=== PATIENT | male | born 1955 | race Caucasian/White ===

== ENCOUNTER 2018-06-28 18:38 | Emergency (ER) | payer OTHER ==
[2018-06-28 19:43] LABS: Absolute Monocytes 0.7 K/uL (0.1-1.3); Absolute Neutrophil 4.8 K/uL (1.8-8.0); Basophils % 0.8 % (0-1.3); Eosinophils % 4.3 % (0-4.4); Hematocrit 45.7 % (39.6-49.0); Lymphocytes % 33.1 % (15.3-44.8); MPV 8.2 fL (7.6-11.3); Monocytes % 8.3 % (3.3-12.3)
[2018-06-28 19:56] LABS: Potassium 3.6 mmol/L (3.5-5.1)
--- NOTE | 2018-06-28 20:42 | ER ---
Nurse's Notes [facility] Name: Hermes Dos Santos Age: 62 yrs Sex: Male : 1955 Arrival Date: 06/28/2018 Time: 18:42 Bed 25 Private MD: Diagnosis: Transient swelling / redness left cheek and both forearms Presentation: 06/28 18:54 Presenting complaint: Patient states: Pt reports area of redness and mild swelling that ss began 2 weeks ago on L side of face that went away after two days, but is now on bilateral forearms and hands. Denies fever, itching and/or pain. Transition of care: patient was not received from another setting of care. Onset of symptoms was June 14, 2018. Risk Assessment: Do you want to hurt yourself or someone else? Patient reports no desire to harm self or others. Initial Sepsis Screen: Does the patient meet any 2 criteria? No. Patient's initial sepsis screen is negative. Does the patient have a suspected source of infection? No. Patient's initial sepsis screen is negative. Care prior to arrival: None. 18:54 Method Of Arrival: Ambulatory ss 18:54 Acuity: VAMSI 3 ss Historical: - Allergies: 18:57 No Known Allergies; ss - Home Meds: 18:57 None [Active]; ss - PMHx: 18:57 None; ss - PSHx: 18:57 L elbow; L index finger; ss - Immunization history:: Adult Immunizations up to date. - Social history:: Smoking status: Patient uses tobacco products, smokes one pack cigarettes per day. - Ebola Screening: : Patient denies exposure to infectious person Patient denies travel to an Ebola-affected area in the 21 days before illness onset. Screenin:25 Abuse screen: Denies threats or abuse. Denies injuries from another. Nutritional mg2 screening: No deficits noted. Tuberculosis screening: No symptoms or risk factors identified. Fall Risk None identified. Assessment: 20:26 General: Appears in no apparent distress. comfortable, Behavior is calm, cooperative. mg2 Pain: Denies pain. Neuro: Level of Consciousness is awake, alert, obeys commands, Oriented to person, place, time, situation. Cardiovascular: Capillary refill < 3 seconds Patient's skin is warm and dry. Respiratory: Airway is patent Respiratory effort is even, unlabored, Respiratory pattern is regular, symmetrical. GI: No signs and/or symptoms were reported involving the gastrointestinal system. : No signs and/or symptoms were reported regarding the genitourinary system. EENT: No signs and/or symptoms were reported regarding the EENT system. Derm: Skin is intact, is healthy with good turgor, Skin is pink, warm \T\ dry. normal. Musculoskeletal: Circulation, motion, and sensation intact. Capillary refill < 3 seconds, Swelling present in left arm. Vital Signs: 18:57 BP 141 / 89; Pulse 70; Resp 16; Temp 98.4(O); Pulse Ox 98% on R/A; Weight 79.38 kg; ss Height 5 ft. 10 in. (177.80 cm); Pain 0/10; 20:50 BP 135 / 78; Pulse 70; Resp 18; Temp 98; Pulse Ox 100% on R/A; mg2 18:57 Body Mass Index 25.11 (79.38 kg, 177.80 cm) ED Course: 18:42 Patient arrived in ED. mr 18:57 Triage completed. ss 18:57 Arm band placed on right wrist. 19:08 Randy Peterson MD is Attending Physician. pkrahul 19:12 Wally Giordano RN is Primary Nurse. mg2 20:26 No provider procedures requiring assistance completed. Patient did not have IV access mg2 during this emergency room visit. 20:27 Patient has correct armband on for positive identification. Door closed. mg2 Administered Medications: No medications were administered Outcome: 20:42 Discharge ordered by . pkrahul 20:56 Discharged to home ambulatory. mg2 20:56 Condition: stable 20:56 Discharge instructions given to patient, Instructed on discharge instructions, follow up and referral plans. medication usage, Demonstrated understanding of instructions, follow-up care, medications, Prescriptions given X 1. 20:57 Patient left the ED. mg2 Signatures: Randy Peterson MD MD pkl Rivera, Mary Arianne Ramos, ALLISON RN Wally Giordano RN RN mg2
--- NOTE | 2018-06-28 20:43 | EDPHYS ---
Physician Documentation [facility] Name: Hermes Dos Santos Age: 62 yrs Sex: Male : 1955 Arrival Date: 06/28/2018 Time: 18:42 Bed 25 Private MD: ED Physician Randy Peterson HPI: 06/28 19:25 This 62 yrs old Male presents to ER via Ambulatory with complaints of Arms pkl swelling. 19:25 The patient presents with redness of skin, swelling. Onset: The symptoms/episode pkl began/occurred 2 week(s) ago, and improved. Associated signs and symptoms: The patient has no apparent associated signs or symptoms. Possible causes: The patient has no known obvious cause for the symptoms. Patient noted mild swelling and redness left cheek that resolved after 2 days. Few days ago, similar swelling and redness appeared in both forearms that resolved after 2 to 3 days. Denies any fever, pain or itching.. Historical: - Allergies: 18:57 No Known Allergies; ss - Home Meds: 18:57 None [Active]; ss - PMHx: 18:57 None; ss - PSHx: 18:57 L elbow; L index finger; ss - Immunization history:: Adult Immunizations up to date. - Social history:: Smoking status: Patient uses tobacco products, smokes one pack cigarettes per day. - Ebola Screening: : Patient denies exposure to infectious person Patient denies travel to an Ebola-affected area in the 21 days before illness onset. ROS: 19:25 Eyes: Negative for injury, pain, redness, and discharge, ENT: Negative for injury, pkl pain, and discharge, Neck: Negative for injury, pain, and swelling, Cardiovascular: Negative for chest pain, palpitations, and edema, Respiratory: Negative for shortness of breath, cough, wheezing, and pleuritic chest pain, Abdomen/GI: Negative for abdominal pain, nausea, vomiting, diarrhea, and constipation, Back: Negative for injury and pain, : Negative for injury, bleeding, discharge, and swelling, MS/Extremity: Negative for injury and deformity. 19:25 Skin: Positive for erythema, swelling, of the left cheek and botb forearms. 19:25 Neuro: Negative for altered mental status. Exam: 19:25 Head/Face: Normocephalic, atraumatic. Eyes: Pupils equal round and reactive to light, pkl extra-ocular motions intact. Lids and lashes normal. Conjunctiva and sclera are non-icteric and not injected. Cornea within normal limits. Periorbital areas with no swelling, redness, or edema. ENT: Nares patent. No nasal discharge, no septal abnormalities noted. Tympanic membranes are normal and external auditory canals are clear. Oropharynx with no redness, swelling, or masses, exudates, or evidence of obstruction, uvula midline. Mucous membranes moist. Neck: Trachea midline, no thyromegaly or masses palpated, and no cervical lymphadenopathy. Supple, full range of motion without nuchal rigidity, or vertebral point tenderness. No Meningismus. Chest/axilla: Normal chest wall appearance and motion. Nontender with no deformity. No lesions are appreciated. Cardiovascular: Regular rate and rhythm with a normal S1 and S2. No gallops, murmurs, or rubs. Normal PMI, no JVD. No pulse deficits. Respiratory: Lungs have equal breath sounds bilaterally, clear to auscultation and percussion. No rales, rhonchi or wheezes noted. No increased work of breathing, no retractions or nasal flaring. Abdomen/GI: Soft, non-tender, with normal bowel sounds. No distension or tympany. No guarding or rebound. No evidence of tenderness throughout. Back: No spinal tenderness. No costovertebral tenderness. Full range of motion. Skin: Warm, dry with normal turgor. Normal color with no rashes, no lesions, and no evidence of cellulitis. MS/ Extremity: Pulses equal, no cyanosis. Neurovascular intact. Full, normal range of motion. Neuro: Awake and alert, GCS 15, oriented to person, place, time, and situation. Cranial nerves II-XII grossly intact. Motor strength 5/5 in all extremities. Sensory grossly intact. Cerebellar exam normal. Normal gait. Vital Signs: 18:57 BP 141 / 89; Pulse 70; Resp 16; Temp 98.4(O); Pulse Ox 98% on R/A; Weight 79.38 kg; ss Height 5 ft. 10 in. (177.80 cm); Pain 0/10; 20:50 BP 135 / 78; Pulse 70; Resp 18; Temp 98; Pulse Ox 100% on R/A; mg2 18:57 Body Mass Index 25.11 (79.38 kg, 177.80 cm) MDM: 19:08 Patient medically screened. pkl 20:40 Data reviewed: vital signs, nurses notes, lab test result(s). pkl 06/28 19:25 Order name: CBC with Diff; Complete Time: 20:40 pkl 06/28 19:25 Order name: Chem 7; Complete Time: 20:40 pkl 06/28 19:25 Order name: Sed Rate; Complete Time: 20:40 pkl Administered Medications: No medications were administered Disposition: 06/28/18 20:42 Discharged to Home. Impression: Transient swelling / redness left cheek and both forearms. - Condition is Stable. - Medication Reconciliation Form, Thank You Letter, Antibiotic Education, Prescription Opioid Use form. - Follow up: Private Physician; When: 2 - 3 days; Reason: Re-evaluation by your physician. - Problem is new. - Symptoms have improved. Signatures: Dispatcher [employer] EDMS Randy Peterson MD MD pkl Arianne Ramos RN RN Wally Giordano RN RN mg2 Corrections: (The following items were deleted from the chart) 20:57 20:42 06/28/2018 20:42 Discharged to Home. Impression: Transient swelling / redness mg2 left cheek and both forearms. Condition is Stable. Forms are Medication Reconciliation Form, Thank You Letter, Antibiotic Education, Prescription Opioid Use. Follow up: Private Physician; When: 2 - 3 days; Reason: Re-evaluation by your physician. Problem is new. Symptoms have improved. pkl
== END 2018-06-28 20:57 | disposition home or self-care (01) ==
LOC: ER 18:38
DX: R22.33 Localized swelling, mass and lump, upper limb, bilateral (principal); R22.0 Localized swelling, mass and lump, head; F17.210 Nicotine dependence, cigarettes, uncomplicated
CPT/HCPCS: 36415; 80048; 85025; 85652; 99282

== ENCOUNTER → 2023-04-17 | Emergency (ER) | payer OTHER ==
[2023-04-17 11:06] LABS: Absolute Basophils 0.1 K/uL (0-0.5); Absolute Eosinophils 0.3 K/uL (0-0.5); Absolute Lymphocytes (CBC) 2.1 K/uL (0.7-4.9); Basophils % 0.8 % (0-1.3); Eosinophils % 3.9 % (0-4.4); Hematocrit 47.1 % (39.6-49.0); Hemoglobin 16.5 g/dL (13.6-17.9); Lymphocytes % 28.8 % (15.3-44.8); MCV 94.6 fL (80-100); MPV 7.4 fL (7.6-11.3); Platelets 264 thou/uL (152-406); RBC Red Blood Cell Count 4.98 M/uL (4.33-5.43)
[2023-04-17 11:17] LABS: Protime INR 1.09
[2023-04-17 11:28] LABS: Albumin 3.8 g/dL (3.4-5.0); Anion Gap 10.8 mEq/L (5.0-15.0); Bilirubin Direct 0.2 mg/dL (0-0.2); Bilirubin Indirect, Calculated 0.2 mg/dL (0.2-0.8); Bilirubin Total 0.4 mg/dL (0.2-1.0); Globulin 3.8 g/dL (2.3-3.5); Magnesium 2.4 mg/dL (1.6-2.4); Potassium 3.8 mEq/L (3.5-5.1); Protein, Total 7.6 g/dL (6.4-8.2); Troponin High Sensitivity 7.8 pg/mL (<58.9)
--- NOTE | 2023-04-17 11:29 | RAD REPORT ---
EXAM DESCRIPTION: CT - Ct Stroke Brain Wo Cont - 04/17/2023 11:07 am CLINICAL HISTORY: Blurred vision COMPARISON: none TECHNIQUE: Computed axial tomography of the head was obtained. All CT scans are performed using dose optimization technique as appropriate and may include automated exposure control or mA/KV adjustment according to patient size. FINDINGS: A serpiginous 4 centimeter area of increased density left occipital lobe. The ventricles are normal in caliber. No extra-axial fluid collection is noted. No shift of midline structures Fluid within the sinuses/ mastoids is not seen. IMPRESSION: A 4 centimeter area of increased density left occipital lobe probably a hemorrhagic infa rction. Another consideration is that this represents an arteriovenous malformation which has bled. M RI recommended for further evaluation Examination discussed with Dr. Hair in the Emergency Room at 11:15 a.m. April 17, 2023
--- NOTE | 2023-04-17 11:48 | RAD REPORT ---
EXAM DESCRIPTION: Sundar Single View04/17/2023 11:39 am CLINICAL HISTORY: TIA COMPARISON: 2009 FINDINGS: Chronic opacities right upper lobe Lungs appear clear of acute infiltrate. The heart is normal size IMPRESSION: No acute abnormalities displayed
--- NOTE | 2023-04-17 11:50 | ER ---
Nurse's Notes [facility] Name: Hermes Dos Santos Age: 67 yrs Sex: Male : 1955 Arrival Date: 04/17/2023 Time: 10:14 Bed 2 Private MD: Diagnosis: Hemorrhagic CVA Presentation: 04/16 10:18 Chief complaint: Patient states: got to work at 5 am yesterday and I felt fine iw .somewhere between 0830 and 0900 I started seeing double and I was having trouble using my computer and I could not get words out , was having some confusion, sat in office for 30 minutes and then drove home. I had a headache yesterday. This morning I have a "feeling" around my left eye , and I have not had any more episodes of confusion or double vision or trouble speaking. Coronavirus screen: At this time, the client does not indicate any symptoms associated with coronavirus-19. Ebola Screen: Patient negative for fever greater than or equal to 101.5 degrees Fahrenheit, and additional compatible Ebola Virus Disease symptoms Patient denies exposure to infectious person. Patient denies travel to an Ebola-affected area in the 21 days before illness onset. No symptoms or risks identified at this time. Initial Sepsis Screen: Does the patient meet any 2 criteria? No. Patient's initial sepsis screen is negative. Does the patient have a suspected source of infection? No. Patient's initial sepsis screen is negative. Risk Assessment: Do you want to hurt yourself or someone else? Patient reports no desire to harm self or others. Onset of symptoms was April 16, 2023. 10:18 Method Of Arrival: Ambulatory iw 10:18 Acuity: VAMSI 2 iw 11:00 No acute neurological deficit is noted. Pre-hospital glucose is not applicable to this db patient. Triage Assessment: 11:00 The onset of the patients symptoms was April 16, 2023 at 08:30. db 13:49 General: Appears in no apparent distress. comfortable, Behavior is calm, cooperative. db Neuro: Level of Consciousness is awake, alert, obeys commands, Oriented to person, place, time, situation, Reports. Respiratory: Airway is patent Respiratory effort is even, unlabored, Respiratory pattern is regular, symmetrical. Stroke Activation: Symptom onset > 6 hours Physician: Stroke Attending; Name: ; Notified At: ; Arrived At: Physician: Chief Stroke Resident; Name: ; Notified At: ; Arrived At: Physician: Stroke Resident; Name: ; Notified At: ; Arrived At: Physician: ED Attending; Name: ; Notified At: ; Arrived At: Physician: ED Resident; Name: ; Notified At: ; Arrived At: Historical: - Allergies: 10:22 No Known Allergies; iw - Home Meds: 10:22 None [Active]; iw - PMHx: 10:22 None; iw - PSHx: 10:22 knee; elbow; iw - Immunization history:: Adult Immunizations not up to date. - Social history:: Smoking status: Patient reports the use of cigarette tobacco products, smokes one pack cigarettes per day. Patient uses alcohol, on a daily basis. claims drinking about a 6 pack/day. Screenin:08 [facility] ED Fall Risk Assessment (Adult) History of falling in the last 3 months, db including since admission No falls in past 3 months (0 pts) Confusion or Disorientation No (0 pts) Intoxicated or Sedated No (0 pts) Impaired Gait No (0 pts) Mobility Assist Device Used No (0 pt) Altered Elimination No (0 pt) Score/Fall Risk Level 0 - 2 = Low Risk Oriented to surroundings, Maintained a safe environment. Abuse screen: Denies threats or abuse. Denies injuries from another. Nutritional screening: No deficits noted. Tuberculosis screening: No symptoms or risk factors identified. Kalina Swallow Protocol Brief Cognitive Screen What is your name? Normal, Where are you right now? Normal, What year is it? Normal. Oral Mechanism Examination Facial Symmetry: Normal, Motion: Normal, Lip Closure: Normal, Oral Mechanism Result: Normal. 3 oz Water Swallow Challenge: Pt able to drink all water without stopping, coughing, choking or throat clearing: Yes Result: PASS. Assessment: 11:02 Reassessment: PATIENT TO CT. General: Appears in no apparent distress. comfortable, db Behavior is calm, cooperative. Neuro: Level of Consciousness is awake, alert, obeys commands, Oriented to person, place, time, situation. 12:00 Reassessment: Patient appears in no apparent distress at this time. Patient and/or db family updated on plan of care and expected duration. Pain level reassessed. Patient is alert, oriented x 3, equal unlabored respirations, skin warm/dry/pink. FAMILY IS AT BEDSIDE. Reassessment: Patient appears in no apparent distress at this time. Patient and/or family updated on plan of care and expected duration. Pain level reassessed. Patient is alert, oriented x 3, equal unlabored respirations, skin warm/dry/pink. GI: No deficits noted. No signs and/or symptoms were reported involving the gastrointestinal system. : No deficits noted. No signs and/or symptoms were reported regarding the genitourinary system. EENT: No deficits noted. No signs and/or symptoms were reported regarding the EENT system. Derm: No deficits noted. No signs and/or symptoms reported regarding the dermatologic system. Musculoskeletal: No deficits noted. No signs and/or symptoms reported regarding the musculoskeletal system. 12:08 Reassessment: CALLED TO GIVE REPORT TO [facility]. db 12:09 Reassessment: Patient appears in no apparent distress at this time. Patient and/or db family updated on plan of care and expected duration. Pain level reassessed. Patient is alert, oriented x 3, equal unlabored respirations, skin warm/dry/pink. Pain: Denies pain. Neuro: Level of Consciousness is awake, alert, obeys commands, Oriented to person, place, time, situation, Food And Beverage Assistant Manager are equal bilaterally Moves all extremities. Speech is normal, Facial symmetry appears normal, Pupils are PERRLA, Intact. 12:11 Cardiovascular: No deficits noted. Respiratory: Airway is patent Respiratory effort is db even, unlabored, Respiratory pattern is regular, symmetrical. 12:16 Reassessment: [facility] DID NOT TAKE REPORT. STATES IT IS NOT ON THE BED db ASSIGNMENT AND STATES WILL CALL ME BACK. 12:45 Reassessment: CALLED [facility] TO GIVE PATIENT REPORT. db 12:58 Reassessment: REPORT GIVEN TO ALLISON VÁZQUEZ AT [facility]. db 13:44 Reassessment: EMS HERE FOR PATIENT TRANSPORT TO [facility]. db 13:44 VAN Scoring: Arm Drift: Patients demonstrates NO arm weakness. Patient is VAN Negative. db Visual Disturbance: No visual disturbance noted. Aphasia: No aphasia noted. Neglect: No neglect noted. Kalina Swallow Protocol Brief Cognitive Screen What is your name? Normal, Where are you right now? Normal, What year is it? Normal. Oral Mechanism Examination Facial Symmetry: Normal, Motion: Normal, Lip Closure: Normal, Oral Mechanism Result: Normal. 3 oz Water Swallow Challenge: Pt able to drink all water without stopping, coughing, choking or throat clearing: Yes Result: PASS. TNKase (Tenecteplase) Screening: Indications: Treatment will start within 4.5 hours onset of symptoms: No. TNKase (Tenecteplase) Screening: Contraindications: Intracranial hemorrhage and its risk factor and suspicion of subarachnoid bleed: Yes. Vital Signs: 10:18 BP 150 / 108; Pulse 79; Resp 16; Temp 97.9; Pulse Ox 98% on R/A; Weight 79.38 kg; iw Height 5 ft. 10 in. ; 11:20 BP 159 / 95; Pulse 72; Resp 18; Pulse Ox 99% on R/A; db 12:00 BP 129 / 82; Pulse 69; Resp 18; Pulse Ox 99% on R/A; db 12:30 BP 130 / 85; Pulse 69; Resp 20; Pulse Ox 96% on R/A; db 13:30 BP 144 / 83; Pulse 79; Resp 18; Temp 98; Pulse Ox 96% ; db 10:18 Body Mass Index 25.11 (79.38 kg, 177.8 cm) iw Vitals: 11:00 Cardiac Rhythm Assessment Regular Sinus rhythm. db New Coma Score: 12:09 Eye Response: spontaneous(4). Motor Response: obeys commands(6). Verbal Response: db oriented(5). Total: 15. NIH Stroke Scale Scores: 11:00 NIHSS Score: 0 db 13:44 NIHSS Score: 0 db ED Course: 10:17 Patient arrived in ED. iw 10:18 Franklin Hair MD is Attending Physician. rt 10:22 Triage completed. iw 10:23 Arm band placed on. iw 10:25 Andra Alfaro, RN is Primary Nurse. db 10:51 Initial lab(s) drawn, by me, sent to lab. Inserted saline lock: 22 gauge in right db antecubital area, using aseptic technique. Blood collected. 10:53 EKG done, by ED staff, reviewed by Franklin Hair MD. db 11:45 initiated transfer to [facility]. bd 12:00 pt accepted in transfer to [facility] [address] tariq admin approval bd given by Flakita Regalado. 12:09 Patient has correct armband on for positive identification. Bed in low position. Call db light in reach. Side rails up X 1. Provided Education on: STROKE TRANSFER. Client placed on continuous cardiac and pulse oximetry monitoring. NIBP monitoring applied. Warm blanket given. 12:49 transfer transportation to receiving facility. db 12:49 No provider procedures requiring assistance completed. db 13:46 Patient transferred, IV remains in place. db Administered Medications: No medications were administered Medication: 12:09 VIS not applicable for this client. db Point of Care Testing: Blood Glucose: 10:50 Blood Glucose: 99 mg/dL; db Ranges: Outcome: 11:49 ER care complete, transfer ordered by MD. rt 13:46 Transferred by ground EMS to [facility], Transfer form completed. db 13:46 Condition: stable 13:46 Instructed on the need for transfer, 13:50 Patient left the ED. db NIH Stroke Scale - NIH Stroke Score Date: 04/17/2023 Time: 11:00 Total Score = 0 10. Dysarthria (speech clarity - read or repeat words) - 0(Normal) 11. Extinction and Inattention (visual/tactile/auditory/spatial/personal) - 0(No abnormality) 1a. Level of Consciousness (LOC) - 0(Alert) 1b. Level of Consciousness (LOC) (Month \\T\\ Age) - 0(Both) 1c. LOC Commands (Open \\T\\ Closes Eyes/Pretzel Twisting Machine Operator) - 0(Both) 2. Best Gaze (Lateral Gaze Paresis) - 0(Normal) 3. Visual Field Loss - 0(No visual loss) 4. Facial Palsy - 0(Normal) 5a. Left Arm: Motor (10-second hold) - 0(No drift) 5b. Right Arm: Motor (10-second hold) - 0(No drift) 6a. Left Leg: Motor (5-second hold - always test supine) - 0(No drift) 6b. Right Leg: Motor (5-second hold - always test supine) - 0(No drift) 7. Limb Ataxia (finger/nose \\T\\ heel/laurent - test with eyes open) - 0(Absent) 8. Sensory Loss (pinprick arms/legs/face) - 0(Normal) 9. Best Language: Aphasia (description/naming/reading) - 0(No aphasia) Initials: db NIH Stroke Scale - NIH Stroke Score Date: 04/17/2023 Time: 13:44 Total Score = 0 10. Dysarthria (speech clarity - read or repeat words) - 0(Normal) 11. Extinction and Inattention (visual/tactile/auditory/spatial/personal) - 0(No abnormality) 1a. Level of Consciousness (LOC) - 0(Alert) 1b. Level of Consciousness (LOC) (Month \\T\\ Age) - 0(Both) 1c. LOC Commands (Open \\T\\ Closes Eyes/Pretzel Twisting Machine Operator) - 0(Both) 2. Best Gaze (Lateral Gaze Paresis) - 0(Normal) 3. Visual Field Loss - 0(No visual loss) 4. Facial Palsy - 0(Normal) 5a. Left Arm: Motor (10-second hold) - 0(No drift) 5b. Right Arm: Motor (10-second hold) - 0(No drift) 6a. Left Leg: Motor (5-second hold - always test supine) - 0(No drift) 6b. Right Leg: Motor (5-second hold - always test supine) - 0(No drift) 7. Limb Ataxia (finger/nose \\T\\ heel/laurent - test with eyes open) - 0(Absent) 8. Sensory Loss (pinprick arms/legs/face) - 0(Normal) 9. Best Language: Aphasia (description/naming/reading) - 0(No aphasia) Initials: db Signatures: Maite Lewis Irene, RN RN iw Andra Alfaro RN RN db Franklin Hair MD MD rt Corrections: (The following items were deleted from the chart) 10:23 10:18 BP 150 / 108; Pulse 79bpm; Resp 16bpm; Pulse Ox 98% RA; Temp 97.9F; iw iw 13:50 11:00 The onset of the patients symptoms was April 16, 2023 at 15:30 db db
--- NOTE | 2023-04-17 11:50 | EDPHYS ---
Physician Documentation [facility] Name: Hermes Dos Santos Age: 67 yrs Sex: Male : 1955 Arrival Date: 04/17/2023 Time: 10:14 Bed 2 Private MD: ED Physician Franklin Hair HPI: 04/16 10:56 This 67 yrs old Male presents to ER via Ambulatory with complaints of Altered Mental rt Status. 10:56 Patient presents to the ED with concerns for strokelike symptoms. Yesterday at roughly rt 5 AM, the patient had an acute onset of double vision, blurred vision, difficulty packing up objects as well as difficulty walking. States that his speech was not making sense but he did know the words that he wanted to say but was unable to speak them. The symptoms lasted for about 1 hour. Reported headache above his left eye. No headache currently, states that he has a "funny" sensation at that area now. Denies other acute complaints, symptoms are moderate in severity, no other aggravating alleviating factors. Historical: - Allergies: 10:22 No Known Allergies; iw - Home Meds: 10:22 None [Active]; iw - PMHx: 10:22 None; iw - PSHx: 10:22 knee; elbow; iw - Immunization history:: Adult Immunizations not up to date. - Social history:: Smoking status: Patient reports the use of cigarette tobacco products, smokes one pack cigarettes per day. Patient uses alcohol, on a daily basis. claims drinking about a 6 pack/day. ROS: 10:56 Constitutional: Negative for fever, chills, and weight loss, Cardiovascular: Negative rt for chest pain, palpitations, and edema, Respiratory: Negative for shortness of breath, cough, wheezing, and pleuritic chest pain, Abdomen/GI: Negative for abdominal pain, nausea, vomiting, diarrhea, and constipation, MS/Extremity: Negative for injury and deformity, Skin: Negative for injury, rash, and discoloration, 10:56 Neuro: Positive for gait disturbance, speech changes, Exam: 10:56 Constitutional: This is a well developed, well nourished patient who is awake, alert, rt and in no acute distress. Head/Face: Normocephalic, atraumatic. Chest/axilla: Normal chest wall appearance and motion. Nontender with no deformity. No lesions are appreciated. Cardiovascular: Regular rate and rhythm with a normal S1 and S2. No gallops, murmurs, or rubs. Normal PMI, no JVD. No pulse deficits. Respiratory: Lungs have equal breath sounds bilaterally, clear to auscultation and percussion. No rales, rhonchi or wheezes noted. No increased work of breathing, no retractions or nasal flaring. Abdomen/GI: Soft, non-tender, with normal bowel sounds. No distension or tympany. No guarding or rebound. No evidence of tenderness throughout. Skin: Warm, dry with normal turgor. Normal color with no rashes, no lesions, and no evidence of cellulitis. MS/ Extremity: Pulses equal, no cyanosis. Neurovascular intact. Full, normal range of motion. Psych: Awake, alert, with orientation to person, place and time. Behavior, mood, and affect are within normal limits. 10:56 Eyes: Extraocular muscles intact, no visual field deficits. 10:56 ECG was reviewed by the Attending Physician. 10:56 Neuro: Slight ataxia on left hand [id number], right hand has no ataxia, cranial nerves II through XII intact, speech normal, strength and sensation intact in upper and lower extremities, Vital Signs: 10:18 BP 150 / 108; Pulse 79; Resp 16; Temp 97.9; Pulse Ox 98% on R/A; Weight 79.38 kg; iw Height 5 ft. 10 in. ; 11:20 BP 159 / 95; Pulse 72; Resp 18; Pulse Ox 99% on R/A; db 12:00 BP 129 / 82; Pulse 69; Resp 18; Pulse Ox 99% on R/A; db 12:30 BP 130 / 85; Pulse 69; Resp 20; Pulse Ox 96% on R/A; db 13:30 BP 144 / 83; Pulse 79; Resp 18; Temp 98; Pulse Ox 96% ; db 10:18 Body Mass Index 25.11 (79.38 kg, 177.8 cm) iw NIH Stroke Scale Scores: 11:00 NIHSS Score: 0 db 13:44 NIHSS Score: 0 db New Coma Score: 12:09 Eye Response: spontaneous(4). Motor Response: obeys commands(6). Verbal Response: db oriented(5). Total: 15. MDM: 10:28 Patient medically screened. rt 11:57 Differential Diagnosis: CVA, intracranial bleed. Data reviewed: vital signs, nurses rt notes. Consideration of Admission/Observation Escalation of care including admission/observation considered. Patient requires transfer for higher level of care. Management of patient was discussed with the following: Saddle Mechanic: Discussed with accepting neurologist. I considered the following discharge prescriptions or medication management in the emergency department Intracranial hemorrhage seen, tPA contraindicated. Independent interpretation of the following test(s) in the Emergency Department CT Scan: My interpretation is Intracranial hemorrhage seen on interpretation of CT scan images. Care significantly affected by the following Social Determinants of Health: Misuse of alcohol and/or drugs. Counseling: I had a detailed discussion with the patient and/or guardian regarding the historical points, exam findings, and any diagnostic results supporting the discharge/admit diagnosis, lab results, radiology results, the need to transfer to another facility. 04/16 11:02 Order name: Glucose, Ancillary Testing; Complete Time: 11:22 EDMS 04/16 11:10 Order name: CBC with Automated Diff; Complete Time: 11:22 EDMS 04/16 11:17 Order name: Protime (+INR); Complete Time: 11:22 EDMS 04/16 11:17 Order name: PTT, Activated Partial Thromb; Complete Time: 11:22 EDMS 04/16 11:28 Order name: Basic Metabolic Panel; Complete Time: 11:33 EDMS 04/16 11:28 Order name: Liver (Hepatic) Function; Complete Time: 11:33 EDMS 04/16 11:28 Order name: Troponin High Sensitivity; Complete Time: 11:33 EDMS 04/16 11:28 Order name: Magnesium; Complete Time: 11:33 EDMS 04/16 11:48 Order name: CREATININE WHOLE BLOOD; Complete Time: 11:49 EDMS 04/16 10:41 Order name: CT Head Angio rt 04/16 10:41 Order name: CT Neck Angio rt 04/16 10:41 Order name: CT Stroke Brain w/o Contrast rt 04/16 10:41 Order name: Stroke CXR 1 View rt 04/16 11:30 Order name: CT; Complete Time: 11:33 EDMS 04/16 11:49 Order name: RAD; Complete Time: 11:49 EDMS 04/16 10:41 Order name: EKG; Complete Time: 17:07 rt 04/16 10:41 Order name: Accucheck; Complete Time: 10:51 rt 04/16 10:41 Order name: Cardiac monitoring; Complete Time: 11:29 rt 04/16 10:41 Order name: EKG - Nurse/Tech; Complete Time: 10:51 rt 04/16 10:41 Order name: IV Saline Lock; Complete Time: 10:51 rt 04/16 10:41 Order name: Labs collected and sent; Complete Time: 10:51 rt 04/16 10:41 Order name: NPO; Complete Time: 12:07 rt 04/16 10:41 Order name: O2 Per Protocol; Complete Time: 10:51 rt 04/16 10:41 Order name: O2 Sat Monitoring; Complete Time: 10:51 rt 04/16 10:41 Order name: Stroke Swallow Screen; Complete Time: 12:07 rt EC:56 Rate is 66 beats/min. Rhythm is regular, Normal Sinus Rhythm with No ectopy. QRS [place] rt is Normal. UT interval is normal. QRS interval is normal. QT interval is normal. No Q waves. T waves are Normal. No ST changes noted. Interpreted by me. Administered Medications: No medications were administered Point of Care Testing: Blood Glucose: 10:50 Blood Glucose: 99 mg/dL; db Ranges: Critical Glucose Levels:Adult <50 mg/dl or >400 mg/dl <40 mg/dl or >180 mg/dl Disposition: 11:57 Critical Care:. rt Disposition Summary: 04/17/23 11:49 Transfer Ordered Notes: Transfer Location: [facility] rt Reason: Higher level of care rt Condition: Serious rt Problem: new rt Symptoms: are unchanged rt Accepting Physician: (04/17/23 13:50) db Diagnosis - Hemorrhagic CVA rt Forms: - Medication Reconciliation Form rt - SBAR form rt Critical care time excluding procedures: 11:57 Critical care time: Bedside Care: 30 minutes, Consultation: 5 minutes. Total time: 35 rt minutes NIH Stroke Scale - NIH Stroke Score Date: 04/17/2023 Time: 11:00 Total Score = 0 10. Dysarthria (speech clarity - read or repeat words) - 0(Normal) 11. Extinction and Inattention (visual/tactile/auditory/spatial/personal) - 0(No abnormality) 1a. Level of Consciousness (LOC) - 0(Alert) 1b. Level of Consciousness (LOC) (Month \\T\\ Age) - 0(Both) 1c. LOC Commands (Open \\T\\ Closes Eyes/Traveling Plant Operator) - 0(Both) 2. Best Gaze (Lateral Gaze Paresis) - 0(Normal) 3. Visual Field Loss - 0(No visual loss) 4. Facial Palsy - 0(Normal) 5a. Left Arm: Motor (10-second hold) - 0(No drift) 5b. Right Arm: Motor (10-second hold) - 0(No drift) 6a. Left Leg: Motor (5-second hold - always test supine) - 0(No drift) 6b. Right Leg: Motor (5-second hold - always test supine) - 0(No drift) 7. Limb Ataxia (finger/nose \\T\\ heel/laurent - test with eyes open) - 0(Absent) 8. Sensory Loss (pinprick arms/legs/face) - 0(Normal) 9. Best Language: Aphasia (description/naming/reading) - 0(No aphasia) Initials: db NIH Stroke Scale - NIH Stroke Score Date: 04/17/2023 Time: 13:44 Total Score = 0 10. Dysarthria (speech clarity - read or repeat words) - 0(Normal) 11. Extinction and Inattention (visual/tactile/auditory/spatial/personal) - 0(No abnormality) 1a. Level of Consciousness (LOC) - 0(Alert) 1b. Level of Consciousness (LOC) (Month \\T\\ Age) - 0(Both) 1c. LOC Commands (Open \\T\\ Closes Eyes/Traveling Plant Operator) - 0(Both) 2. Best Gaze (Lateral Gaze Paresis) - 0(Normal) 3. Visual Field Loss - 0(No visual loss) 4. Facial Palsy - 0(Normal) 5a. Left Arm: Motor (10-second hold) - 0(No drift) 5b. Right Arm: Motor (10-second hold) - 0(No drift) 6a. Left Leg: Motor (5-second hold - always test supine) - 0(No drift) 6b. Right Leg: Motor (5-second hold - always test supine) - 0(No drift) 7. Limb Ataxia (finger/nose \\T\\ heel/laurent - test with eyes open) - 0(Absent) 8. Sensory Loss (pinprick arms/legs/face) - 0(Normal) 9. Best Language: Aphasia (description/naming/reading) - 0(No aphasia) Initials: db Signatures: Dispatcher [employer] Dot Mejia RN RN iw Andra Alfaro RN RN Franklin Alberto MD MD rt Corrections: (The following items were deleted from the chart) 13:50 11:49 Dr. lerma db
[2023-04-17 14:29] VITALS: BP 144/83; TEMP 98; O2SAT 96
== END ==
LOC: ER 10:14
DX: I62.9 Nontraumatic intracranial hemorrhage, unspecified (principal); R29.700 NIHSS score 0; F17.210 Nicotine dependence, cigarettes, uncomplicated
CPT/HCPCS: 36415; 70450; 71045; 80048; 80076; 82565; 82947; 83735; 84484; 85025; 85610; 85730